=== PATIENT | female | born 1990 | race Two or more races ===

== ENCOUNTER 2019-05-19 10:02 | Emergency (ER) | payer BC ==
[~2019-05-19] VITALS: Ht 172.7 cm; Wt 87.0 kg
[2019-05-19 10:06] VITALS: BP 125/69
[2019-05-19] MEDS ORDERED: HYDROcodone/APAP 7.5-325MG/15ML UDC ONE (10:43)
[2019-05-19] MEDS ORDERED: HYDROcodone/APAP 7.5-325MG/15ML UDC PO ONE (11:00)
[2019-05-19 11:07] LABS: RAPID INFLUENZA A Negative (Negative); RAPID INFLUENZA B Negative (Negative)
== END 2019-05-19 11:31 | disposition home or self-care (01) ==
LOC: ED 11:22
DX: J02.9 Acute pharyngitis, unspecified (principal); R09.81 Nasal congestion; R50.9 Fever, unspecified
CPT/HCPCS: 87081; 87400; 87880; 99283

== ENCOUNTER 2019-05-31 10:14 | Emergency (ER) | payer BC ==
[~2019-05-31] VITALS: Ht 172.7 cm; Wt 86.0 kg
[2019-05-31 10:17] VITALS: BP 123/83
--- NOTE | 2019-05-31 11:08 | NUR ---
Pt to room from lobby.
--- NOTE | 2019-05-31 11:30 | NUR ---
pt c/o resp sx, sore throat. diarrhea yest. nad. call [facility] in reach. as
--- NOTE | 2019-05-31 12:30 | NUR ---
xr/labs ordered. nad. as
--- NOTE | 2019-05-31 13:09 | NUR ---
awaiting xr. as
--- NOTE | 2019-05-31 13:35 | NUR ---
xr clear. recheck. as
== END 2019-05-31 14:13 | disposition home or self-care (01) ==
LOC: ED 14:07
DX: J02.8 Acute pharyngitis due to other specified organisms (principal); B97.89 Other viral agents as the cause of diseases classified elsewhere; J45.909 Unspecified asthma, uncomplicated
CPT/HCPCS: 36415; 71046; 84703; 99284